=== PATIENT | male | born 1995 | race Caucasian/White ===

== ENCOUNTER 2016-09-21 12:20 | Outpatient (CLI) | payer MEDICAID ==
[~2016-09-21 12:20] MED LIST: ASPIRIN (CHILDR81 MG PO; CATAPRES0.1 MG PO; DDAVP0.2 MG PO; DEPAKOTE ER500 MG PO; DESYREL100 MG PO; EPIPEN0.3 MG IM; FEOSOL325 MG PO; FLOMAX0.4 MG PO; FLORINEF0.1 MG PO; LAMICTAL200 MG PO; LITHOBID300 MG PO; RISPERDAL2 MG PO
[2016-09-21 13:29] LABS: HEMATOCRIT 35.1 % (37.0-53.0); HEMOGLOBIN 11.8 g/dL (12.0-17.0); MCH 28.7 pg (27.0-34.0); MCHC 33.6 gm/dL (32.0-36.5); MCV 85.4 fl (83.0-98.0); MPV 8.9 fl (9.4-12.4); RBC 4.11 M/uL (4.00-6.00); WBC 6.2 K/uL (4.0-11.0)
[2016-09-21 13:36] LABS: INR - (THERAPEUTIC) 0.97 (0.92-1.07); PROTIME 10.2 SECONDS (9.8-11.4)
[2016-09-21 13:45] LABS: ALBUMIN 3.8 gm/dL (3.5-5.0); CREATININE 1.3 mg/dL (0.6-1.3); PHOSPHORUS 3.2 mg/dL (2.5-4.9)
== END 2016-09-21 19:11 | disposition disaster alternative care site (69) ==
LOC: GOPD 12:20
PROVIDERS: Internal Medicine Nephrology
DX: N18.2 Chronic kidney disease, stage 2 (mild) (principal); Q27.1 Congenital renal artery stenosis
CPT/HCPCS: C8902